=== PATIENT | male | born 2000 | race Caucasian/White ===

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

== ENCOUNTER 2020-03-14 20:56 | Emergency (ER) | payer BC, OTHER ==
[~2020-03-14] VITALS: Ht 170.2 cm; Wt 63.6 kg
--- OUTSIDE RECORDS SUMMARY | 2020-03-14 21:01 | CCD ---
Author Author [facility] Organization [facility] Address Unknown Phone Unavailable Care Team Providers Care American Indian Policy Specialist Name Role Phone Patria, L Zoila PA Unavailable Unavailable Patria, L Zoila PA Unavailable Unavailable Patria, L Zoila PA Unavailable Unavailable Patria, L Zoila PA Unavailable Unavailable Patria, L Zoila PA Unavailable Unavailable Patria, L Zoila PA Unavailable Unavailable Patria, L Zoila PA Unavailable Unavailable Patria, L Zoila PA Unavailable Unavailable Patria, L Zoila PA Unavailable Unavailable Patria, L Zoila PA Unavailable Unavailable Patria, L Zoila PA Unavailable Unavailable Patria, L Zoila PA Unavailable Unavailable Patria, L Zoila PA Unavailable Unavailable Patria, L Zoila PA Unavailable Unavailable Patria, L Zoila PA Unavailable Unavailable Patria, L Zoila PA Unavailable Unavailable Patria, L Zoila PA Unavailable Unavailable Patria, L Zoila PA Unavailable Unavailable Patria, L Zoila PA Unavailable Unavailable Patria, L Zoila PA Unavailable Unavailable Patria, L Zoila PA Unavailable Unavailable Patria, L Zoila PA Unavailable Unavailable Patria, L Zoila PA Unavailable Unavailable Patria, L Zoila PA Unavailable Unavailable Patria, L Zoila PA Unavailable Unavailable Patria, L Zoila PA Unavailable Unavailable Patria, L Zoila PA Unavailable Unavailable Patria, L Zoila PA Unavailable Unavailable Patria, L Zoila PA Unavailable Unavailable Patria, L Zoila PA Unavailable Unavailable Patria, L Zoila PA Unavailable Unavailable Patria, L Zoila PA Unavailable Unavailable Patria, L Zoila PA Unavailable Unavailable Patria, L Zoila PA Unavailable Unavailable Patria, L Zoila PA Unavailable Unavailable Patria, L Zoila PA Unavailable Unavailable Patria, L Zoila PA Unavailable Unavailable Patria, L Zoila PA Unavailable Unavailable Patria, L Zoila PA Unavailable Unavailable Patria, L Zoila PA Unavailable Unavailable Patria, L Zoila PA Unavailable Unavailable Patria, L Zoila PA Unavailable Unavailable Patria, L Zoila PA Unavailable Unavailable Patria, L Zoila PA Unavailable Unavailable Patria, L Zoila PA Unavailable Unavailable Patria, L Zoila PA Unavailable Unavailable Patria, L Zoila PA Unavailable Unavailable Patria, L Zoila PA Unavailable Unavailable Patria, L Zoila PA Unavailable Unavailable Patria, L Zoila PA Unavailable Unavailable Patria, L Zoila PA Unavailable Unavailable Patria, L Zoila PA Unavailable Unavailable Patria, L Zoila PA Unavailable Unavailable Patria, L Zoila PA Unavailable Unavailable Patria, L Zoila PA Unavailable Unavailable Patria, L Zoila PA Unavailable Unavailable Patria, L Zoila PA Unavailable Unavailable Patria, L Zoila PA Unavailable Unavailable Patria, L Zoila PA Unavailable Unavailable Patria, L Zoila PA Unavailable Unavailable Patria, L Zoila PA Unavailable Unavailable Re-disclosure Warning The records that you are about to access may contain information from federally-assisted alcohol or drug abuse programs. If such information is present, then the following federally mandated warning applies: This information has been disclosed to you from records protected by federal confidentiality rules (42 CFR part 2). The federal rules prohibit you from making any further disclosure of this information unless further disclosure is expressly permitted by the written consent of the person to whom it pertains or as otherwise permitted by 42 CFR part 2. A general authorization for the release of medical or other information is NOT sufficient for this purpose. The Federal rules restrict any use of the information to criminally investigate or prosecute any alcohol or drug abuse patient.The records that you are about to access may contain highly sensitive health information, the redisclosure of which is protected by Article 27-F of the [facility] Public Health law. If you continue you may have access to information: Regarding HIV / AIDS; Provided by facilities licensed or operated by the [facility] Office of Mental Health; or Provided by the [facility] Office for People With Developmental Disabilities. If such information is present, then the following [facility] mandated warning applies: This information has been disclosed to you from confidential records which are protected by state law. State law prohibits you from making any further disclosure of this information without the specific written consent of the person to whom it pertains, or as otherwise permitted by law. Any unauthorized further disclosure in violation of state law may result in a fine or snf sentence or both. A general authorization for the release of medical or other information is NOT sufficient authorization for further disc losure. Encounters Encounter Providers Location Date Indications Data Source(s ) Outpatient Attender: Zoila CONDON [facility] 02/2019 03:30:00 PM EDT - 11/14/2019 03:31:00 PM [facility] Patient discharged. Outpatient Attender: Zoila CONDON [facility] 10:06:00 AM EDT - 10/10/2019 10:07:00 AM T [facility] Patient discharged. Insurance Providers Payer name Policy type / Coverage type Policy ID Covered libertarian ID Covered libertarian's relationship to irwin Policy Irwin Plan Information SELF PAY ONLY SP [facility] [id number] SP [id number] [facility] [place] [id number] CHILD [id number] ANSI-Commercial [id number] [facility] [id number] S [id number] Problems, Conditions, and Diagnoses Code Display Name Description Problem Type Effective Dates Data Source(s) F90.0 Attention-deficit hyperactivity disorder , 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 Procedure
--- NOTE | 2020-03-14 21:55 | REPVR ---
PROCEDURE INFORMATION: Exam: XR Left Hand Exam date and time: 03/14/2020 9:17 PM Age: 19 years old Clinical indication: Pain; Hand; Left; Additional info: Pain; Swelling TECHNIQUE: Imaging protocol: XR Left hand. Views: 3 or more views. COMPARISON: CR Wrist, complete LEFT 03/14/2020 9:06 PM FINDINGS: Bones/joints: There is an acute nondisplaced transverse fracture involving the waist of the left scaphoid. No other fractures are seen. The joint spaces and alignment are preserved. Soft tissues: There is soft tissue swelling in the left wrist. IMPRESSION: Acute, nondisplaced transverse fracture of the waist of the left scaphoid. Electronically signed by: Deondre Munoz On 03/14/2020 21:54:59 PM
--- NOTE | 2020-03-14 21:55 | REPVR ---
PROCEDURE INFORMATION: Exam: XR Left Wrist Exam date and time: 03/14/2020 9:17 PM Age: 19 years old Clinical indication: Pain; Wrist; Left; Additional info: Injury TECHNIQUE: Imaging protocol: XR Left wrist. Views: 3 or more views. COMPARISON: No relevant prior studies available. FINDINGS: Bones/joints: There is an acute, nondisplaced transverse fracture involving the waist of the left scaphoid. No increased sclerosis of the proximal pole of the scaphoid or fragmentation of the proximal pole is present. No humpback deformity of the scaphoid is noted. No other fractures are seen. No widening of the scapholunate or lunotriquetral spaces is noted. There is no evidence for carpal instability in the wrist. The joint spaces are preserved. No arthropathy is noted. Soft tissues: There is soft tissue swelling around the left wrist. IMPRESSION: Acute, nondisplaced transverse fracture of the waist of the left scaphoid. Electronically signed by: Deondre Munoz On 03/14/2020 21:54:46 PM
--- OUTSIDE RECORDS SUMMARY | 2020-03-14 21:59 | CCD ---
Author Author [facility] Organization [facility] Address Unknown Phone Unavailable Care Team Providers Care Concierge Manager Name Role Phone Patria, L Zoila PA [...] is protected by Article 27-F of the [facility] Public Health law. If you continue you may have access to information: Regarding HIV / AIDS; Provided by facilities licensed or operated by the [facility] Office of Mental Health; or Provided by the [facility] Office for People With Developmental Disabilities. If such information is present, then the following [facility] mandated warning applies: This information [...] law may result in a fine or skilled nursing sentence or both. A general authorization for the release of medical or other information is NOT sufficient authorization for further disc losure. Encounters Encounter Providers Location Date Indications Data Source(s ) [facility] 03:[facility]:00 PM EDT - 11/14/2019 03:31:00 PM [facility] Patient discharged. Outpatient Attender: Zoila [facility]DON [facility] 10:06:00 AM EDT - 10/10/2019 10:07:00 AM [facility] Patient discharged. Insurance Providers Payer name Policy type / Coverage type Policy ID Covered alliance party ID Covered alliance party's relationship to irwin Policy Irwin Plan Information [facility] [id number] MO2 [id number] [facility] JAMIL DIV [id number] MO2 [id number] [facility] [id number] [id number] SELF PAY ONLY SP [facility] [id number] SP [id number] [facility] [place] [id number] CHILD [id number] ANSI-Commercial [id number] [facility] [id number] S [id number] Problems, Conditions, and Diagnoses Code Display Name Description Problem Type Effective Dates Data Source(s) F90.0 Attention-deficit hyperactivity disorder , 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 Procedure
[2020-03-14 22:19] VITALS: BP 141/73
== END 2020-03-14 22:28 | disposition home or self-care (01) ==
LOC: M ED 20:56
DX: S62.002A Unspecified fracture of navicular [scaphoid] bone of left wrist, initial encounter for closed fracture (principal); W00.9XXA Unspecified fall due to ice and snow, initial encounter; Y92.099 Unspecified place in other non-institutional residence as the place of occurrence of the external cause; Y93.23 Activity, snow (alpine) (downhill) skiing, snowboarding, sledding, tobogganing and snow tubing; Y99.9 Unspecified external cause status